=== PATIENT | male | born 1980 | race Caucasian/White ===

== ENCOUNTER 2017-06-24 12:40 | Outpatient (CLI) | payer OTHER | END 2017-06-24 12:41 | disposition home or self-care (01) | LOC: BICRAD 12:40 | PROVIDERS: ATTEND Chiropractor | DX: M54.2 Cervicalgia (principal); M77.11 Lateral epicondylitis, right elbow | CPT/HCPCS: 72040 ==

== ENCOUNTER 2019-06-29 09:00 | Outpatient (CLI) | payer OTHER ==
--- NOTE | 2019-06-29 13:12 | MRI ---
MR OF THE CERVICAL SPINE WITHOUT CONTRAST: 06/29/19 INDICATION: 38-year-old male with paresthesias in the skin, neck pain with bilateral upper extremity pain, tingli ng and numbness that radiates into the arms and hands, left greater than right. No history of prior c ervical spinal surgery. COMPARISON: None. TECHNIQUE: Routine noncontrast MR images were obtained of the cervical spine. There is no radiographic or MR com parisons. FINDINGS: There is a 1.3 cm T2 and T1 hyperintense lesion within left T1 veterbral body consistent with a benig n hemangioma. Craniocervical junction appears within normal limits. The visualized aspects of the pos terior fossa are normal appearing. Spinal alignment appears within normal limits. No acute fracture is demonstrated. Spinal cord demonstrates a normal signal intensity and caliber. At C2-C3, there is mild facet joint degenerative change bilaterally. There is no appreciable central canal or neural foraminal narrowing. At C3-4, there is a broad based with mild uncovertebral hypertrophy and mild facet joint degenerativ e change but no appreciable central canal or neural foraminal narrowing. At C4-5, there is no appreciable central canal or neural foraminal narrowing. There is mild facet renaldo nt degenerative change and mild uncovertebral hypertrophy. There is a minimal broad based bulge. At C5-6, there is a mild broad based bulge with uncovertebral hypertrophy and facet joint degenerat david change but no appreciable central canal or neural foraminal narrowing. The broad based bulge does mildly efface the subarachnoid space without cord contact. At C6-7, there is a broad based bulge with uncovertebral hypertrophy and facet joint degenerative michelle nge but no appreciable central canal or neural foraminal narrowing. At C7-T1, there is no appreciable central canal or neural foraminal narrowing. At T1-T2, there is no appreciable central canal or neural foraminal narrowing. IMPRESSION: 1. Mild cervical spondylosis without appreciable central canal or neural foraminal narrowing. 2. Left T1 vertebral body hemangioma. POS: BH
== END 2019-06-29 09:01 | disposition home or self-care (01) ==
LOC: SCSMRI 09:00
PROVIDERS: ATTEND Psychiatry & Neurology Neurology
DX: R20.2 Paresthesia of skin (principal); M47.812 Spondylosis without myelopathy or radiculopathy, cervical region; D18.09 Hemangioma of other sites
CPT/HCPCS: 72141

== ENCOUNTER 2019-07-30 16:47 | Outpatient (CLI) | payer OTHER ==
--- NOTE | 2019-07-30 17:11 | RAD ---
EXAM: XR Sacroiliac Joints >=3 View DATE: 07/30/2019 12:00 AM INDICATION: Low back pain and history of abnormal immunological tests. COMPARISON: None. FINDING: The SI joints are well maintained. No periarticular erosive change is evident. Sepsis pubis and both hips are normal appearing. No acute fracture is evident. Visualized bowel gas pattern appears within normal limits. IMPRESSION:Radiographically normal appearance of the SI joints.
== END 2019-07-30 16:48 | disposition home or self-care (01) ==
LOC: SCSRAD 16:47
DX: M54.5 Low back pain (principal); R76.9 Abnormal immunological finding in serum, unspecified
CPT/HCPCS: 72202